=== PATIENT | female | born 2000 | race American Indian/Alaskan Native ===

== ENCOUNTER 2018-10-20 22:05 | Emergency (ER) | payer SELFPAY ==
[2018-10-20] MEDS ORDERED: TYLENOL PO ONE (22:33)
[2018-10-20 22:35] VITALS: BP 149/92
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
== END 2018-10-21 04:00 | disposition left against medical advice (07) ==
LOC: ED 22:05
DX: R51 Headache (principal)
CPT/HCPCS: 99282

== ENCOUNTER 2021-01-08 12:56 | Outpatient (CLI) | payer MEDICAID ==
[2021-01-08] MEDS ORDERED: LACTATED RINGERS 500 ML IV ONE (14:00)
[2021-01-08 15:27] LABS: Hematocrit 37.2 % (30.3-42.9); Hemoglobin 12.1 gm/dl (10.1-14.3); Mean Corpuscular HGB Conc 33 % (30-34); Mean Corpuscular Volume 84 fl (79-97); Platelet Count 251 K/mm3 (140-440); Red Blood Count 4.44 M/mm3 (3.65-5.03); Red Cell Distribution Width 13.9 % (13.2-15.2)
[2021-01-08 15:39] LABS: Bacteria,Urine 2+ /HPF (Negative); Bilirubin,Urine NEG (Negative); Blood,Urine NEG (Negative); Color,Urine Yellow (Yellow); Mucus,Urine FEW /HPF; Urobilinogen,Urine < 2.0 mg/dL (<2.0)
--- NOTE | 2021-01-08 15:46 | Ultrasound Report ---
ULTRASOUND BIOPHYSICAL PROFILE ULTRASOUND OB LIMITED INDICATION: wellbeing TECHNIQUE: Transabdominal ultrasound imaging. COMPARISON: None FINDINGS: breathing movement = 2 Gross body movement = 2 tone = 2 Qualitative amniotic fluid volume = 2 Total biophysical score = 8/8 Amniotic fluid index is 11.9 cm. Presentation is cephalic. heart rate is 144 beats per minute. IMPRESSION: biophysical profile equals 8/8. Signer Name: Manuelito Powers Jr, MD Signed: 01/08/2021 3:41 PM Workstation Name: [id number]
[2021-01-08 15:50] LABS: Alanine Aminotransferase 12 units/L (7-56); Uric Acid 3.3 mg/dL (3.5-7.6)
[2021-01-08 16:37] VITALS: BP 121/57
== END 2021-01-08 16:48 | disposition home or self-care (01) ==
LOC: APU 12:56 → TRG 12:56
DX: Z34.93 Encounter for supervision of normal pregnancy, unspecified, third trimester (principal); Z3A.38 38 weeks gestation of pregnancy
CPT/HCPCS: 36415; 59025; 76815; 76819; 81001; 82565; 83615; 84450; 84460; 84550; 85027; 87086

== ENCOUNTER 2021-01-11 14:06 | Inpatient (IN) | payer MEDICAID ==
[2021-01-11] MEDS ORDERED: fentaNYL 100 MCG/2 ML INJ IV PRN (14:33)
[2021-01-11] MEDS ORDERED: TERBUTALINE 1 MG/1 ML INJ SUB-Q PRN (14:33)
[2021-01-11] MEDS ORDERED: LIDOCAINE (2%) 20 MG/1 ML VIAL 20 ML MDV INFILTRATI ONE (14:33)
--- NOTE | 2021-01-11 14:36 | History and Physical Report ---
History of Present Illness Date of examination: 01/11/21 Date of admission: 01/11/2021 Chief complaint: Leaking of fluid from vagina History of present illness: 20 year old female presents with complaint of leaking clear fluid from vagina since around 14:00 today. Patient received care at [facility] and records are available. LMP 04/15/2020. EDC 01/20/2021 (confirmed by US at 14 weeks gestation). significant for the following: obesity (saw [facility] during the ), nonalcoholic fatty liver disease with mild hepatic steatosis (had GI referral). labs are as follows: B+, rubella immune, pap smear negative, hepatitis B surface antigen negative, HIV negative, RPR nonreactive, gonorrhea negative, chlamydia negative, trichomonas negative, AFP negative, 1 hour sugar test 85 (repeat 83), GBS negative. Past History Past Medical History: other (obesity, NAFLD) Past Surgical History: no surgical history [facility] History: denies: abnormal PAP smear, chlamydia, gonorrhea, hepatitis B, hepatitis C, herpes, HIV, syphilis, trichomonas Family/Genetic History: cancer Social history: full code. denies: smoking, alcohol abuse, prescription drug abuse, IV drug use - Obstetrical History Expected Date of Delivery: 01/20/21 Actual Gestation: 38 Week(s) 5 Day(s) : 1 Para: 0 Hx # Term Pregnancies: 0 Number of Pregnancies: 0 Spontaneous Abortions: 0 Induced : 0 Number of Living Children: 0 Medications and Allergies Allergies Allergy/AdvReac Type Severity Reaction Status Date / Time No Known Allergies Allergy Verified 07/05/18 22:09 Home Medications Medication Instructions Recorded Confirmed Last Taken Type No Known Home Medications [No 01/08/21 01/08/21 Unknown History Reported Home Medications] Active Meds: Active Medications Ephedrine Sulfate (Ephedrine Sulfate 50 Mg/1 Ml Inj) 10 mg IV Q2M PRN PRN Reason: Hypotension Fentanyl (Fentanyl 100 Mcg/2 Ml Inj) 100 mcg IV Q2H PRN PRN Reason: Pain,Severe (7-10) LABOR PAIN Oxytocin/Sodium Chloride (Pitocin/Ns 30 Unit/500ml) 30 units in 500 mls @ 2 mls/hr IV TITR ALCON; Protocol Lactated Ringer's (Lactated Ringers) 1,000 mls @ 125 mls/hr IV DIRECT ALCON Oxytocin/Sodium Chloride (Pitocin/Ns 30 Unit/500ml) 30 units in 500 mls @ 40 mls/hr IV TITR ALCON; Protocol Lidocaine (Lidocaine (2%) 20 Mg/1 Ml Vial 20 Ml Mdv) 20 ml INFILTRATI ONCE ONE Stop: 01/11/21 14:34 Mineral Oil (Mineral Oil 30 Ml Oral Liqd) 30 ml PO QHS PRN PRN Reason: Constipation Terbutaline Sulfate (Terbutaline 1 Mg/1 Ml Inj) 0.25 mg SUB-Q ONCE PRN PRN Reason: Hyperstimulation/Hypertonicity Review of Systems All systems: negative (leaking of fluid from vagina, contractions) - Physical Exam Abdomen: Positive: normal appearance, soft. Negative: distention, tenderness, guarding, rigidity Genitourinary (Female): Positive: normal external genitalia, normal perenium. Negative: perineal/vulvar lesions Vagina: Positive: other (moderate amount of clear fluid seen coming from vagina) Uterus: Positive: enlarged. Negative: tender Anus/Rectum: Positive: normal perianal skin Extremities: Negative: tenderness, edema - Obstetrical FHR: category 1 Uterine Contraction Monitor Mode: External Cervical Dilatation: 2 Cervical Effacement Percentage: 50 station: -4 Uterine Contraction Pattern: Regular Uterine Contraction Intensity: Mild Results All other labs normal. Assessment and Plan A: at 38 weeks, 5 days gestation. Spontaneous rupture of membranes. GBS negative. Obesity. NAFLD. P: Admit. Continuous EFM. Augmentation of labor.
[2021-01-11] MEDS ORDERED: OXYTOCIN DRIP 30 UNITS/500 ML BAG IV SCH ×2 (15:00)
[2021-01-11] MEDS: LACTATED RINGERS 1,000 ML IV SCH (16:04)
[2021-01-11 16:43] LABS: Hematocrit 36.5 % (30.3-42.9); Hemoglobin 12.1 gm/dl (10.1-14.3); Mean Corpuscular HGB Conc 33 % (30-34); Mean Corpuscular Volume 85 fl (79-97); Platelet Count 215 K/mm3 (140-440); Red Blood Count 4.29 M/mm3 (3.65-5.03); Red Cell Distribution Width 13.6 % (13.2-15.2)
[2021-01-11 16:58] LABS: Alanine Aminotransferase 13 units/L (7-56); Albumin 3.8 g/dL (3.9-5); Blood Urea Nitrogen 5 mg/dL (7-17); Calcium 9.1 mg/dL (8.4-10.2); Hemolysis Index 209
[2021-01-11 17:02] LABS: BUN/Creatinine Ratio 13
[2021-01-12] MEDS ORDERED: ONDANSETRON 4 MG/2 ML INJ IV PRN ×2 (02:32→06:36)
--- NOTE | 2021-01-12 02:38 | Event Note ---
Date: 01/12/21 Patient requests pain medication. SVE 2.5/60/-3. Receiving Pitocin for augmentation of labor due to SROM.
[2021-01-12] MEDS: BUTORPHANOL 2 MG/1 ML INJ IV PRN ×2 (02:42→05:14)
[2021-01-12] MEDS: LACTATED RINGERS 1,000 ML IV SCH ×4 (05:15→19:06)
[2021-01-12] MEDS ORDERED: diphenhydrAMINE 50 MG/ML VIAL IV PRN (06:36)
[2021-01-12] MEDS ORDERED: NALOXONE 2 MG/2 ML INJ IV PRN (06:36)
[2021-01-12] MEDS ORDERED: LACTATED RINGERS 250 ML IV SOLN IV ONE (06:36)
[2021-01-12] MEDS ORDERED: NalbUPHINE 10 MG/1 ML INJ IV PRN (06:36)
[2021-01-12] MEDS ORDERED: fentaNYL-BUPIV 2 MCG/ML-0.125% 200 MCG/100 ML BAG EPIDURAL SCH (07:00)
--- NOTE | 2021-01-12 07:04 | Anesthesia Consultation ---
Anesthesia Consult and Med Hx Date of service: 01/12/21 - Airway Anesthetic Teeth Evaluation: Good ROM Head & Neck: Adequate Mental/Hyoid Distance: Adequate Mallampati Class: Class III Intubation Access Assessment: Possibly Difficult - Pulmonary Exam CTA: Yes - Cardiac Exam Cardiac Exam: RRR - Pre-Operative Health Status ASA Pre-Surgery Classification: ASA3 Proposed Anesthetic Plan: Epidural - Pulmonary Hx Smoking: No Hx Asthma: No COPD: No Hx Pneumonia: No Hx Sleep Apnea: No - Cardiovascular System Hx Hypertension: Yes (PIH) Hx Heart Attack/AMI: No Hx Angina: No - Central Nervous System Hx Seizures: No Hx Psychiatric Problems: No - Gastrointestinal Hx Gastroesophageal Reflux Disease: No - Endocrine Hx Renal Disease: No Hx End Stage Renal Disease: No Hx Liver Disease: No Hx Insulin Dependent Diabetes: No Hx Non-Insulin Dependent Diabetes: No Hx Hypothyroidism: No Hx Hyperthyroidism: No - Hematic Hx Anemia: Yes Hx Sickle Cell Disease: No - Other Systems Hx Alcohol Use: No Hx Obesity: Yes
--- NOTE | 2021-01-12 07:05 | Progress Note ---
Labor Epidural - Labor Epidural Start Time: 06:45 Stop Time: 06:55 Performed by:: KIKE VILCHIS Procedure: Patient is requesting epidural for labor and pain. H&P, labs were reviewed. Patient IDed, H&P reviewed, all questions and concerns were answered, and consent was signed. Timeout was performed at bedside. Patient in sitting position. Sterile prep and drape was performed. 3ml of 1% lidocaine skin wheal at L[3]- L [4]. 18-gauge Tuohy epidural needle was advanced to loss of resistance with air technique 7cm. Negative CSF negative blood. Epidural catheter advanced to [12] centimeters. [negative] Aspiration [negative] test dose. Sterile dressing applied. Patient tolerated procedure.
[2021-01-12] MEDS: ePHEDrine SULFATE 50 MG/1 ML INJ IV PRN ×3 (07:13→07:26)
[2021-01-12] MEDS ORDERED: AMPICILLIN/NS 2 GM/100 ML 2 GM/100 ML BAG IV ONE (10:20)
--- NOTE | 2021-01-12 10:28 | Progress Note ---
Assessment and Plan A: IUP @ 38 6/7 Weeks Category I Tracing RROM Foul Smelling Amnotic Fluid GBS Negative Maternal Obesity P: Start Ampicillin 2G IV Now, 1G q 4 hours Continue Pitocin Augmentation Multiple Maternal Position Changes Subjective - Subjective Date of service: 01/12/21 Interval history: States her water broke yesterday around 1:00PM yesterday; states the fluid was clear Patient reports: loss of fluid, movement normal, other (Resting well under epidural anesthesia) Objective - Vital Signs Vital Signs: Vital Signs - 12hr 01/11/21 01/11/21 01/11/21 22:27 22:32 22:37 Temperature Pulse Rate 83 87 83 Respiratory Rate Blood Pressure O2 Sat by Pulse 98 97 100 Oximetry 01/11/21 01/11/21 01/11/21 22:40 22:42 22:47 Temperature Pulse Rate 105 H 87 86 Respiratory Rate Blood Pressure O2 Sat by Pulse 91 98 99 Oximetry 01/11/21 01/11/21 01/11/21 22:52 22:57 23:02 Temperature Pulse Rate 84 79 65 Respiratory Rate Blood Pressure O2 Sat by Pulse 99 98 99 Oximetry 01/11/21 01/11/21 01/11/21 23:07 23:12 23:17 Temperature Pulse Rate 74 71 69 Respiratory Rate Blood Pressure O2 Sat by Pulse 99 98 100 Oximetry 01/11/21 01/11/21 01/11/21 23:22 23:27 23:32 Temperature Pulse Rate 76 68 94 H Respiratory Rate Blood Pressure O2 Sat by Pulse 100 99 99 Oximetry 01/11/21 01/11/21 01/11/21 23:37 23:42 23:43 Temperature 97.8 F Pulse Rate 68 82 78 Respiratory 16 Rate Blood Pressure 136/62 O2 Sat by Pulse 98 99 Oximetry 01/11/21 01/11/21 01/11/21 23:47 23:52 23:57 Temperature Pulse Rate 77 68 82 Respiratory Rate Blood Pressure O2 Sat by Pulse 97 98 98 Oximetry 01/12/21 01/12/21 01/12/21 00:02 00:07 03:30 Temperature 97.7 F Pulse Rate 79 84 Respiratory Rate Blood Pressure O2 Sat by Pulse 99 96 Oximetry 01/12/21 01/12/21 01/12/21 05:00 05:10 05:11 Temperature 98.0 F Pulse Rate 110 H 56 L Respiratory Rate Blood Pressure O2 Sat by Pulse 100 86 Oximetry 01/12/21 01/12/21 01/12/21 05:15 05:18 05:20 Temperature Pulse Rate 101 H 106 H 104 H Respiratory Rate Blood Pressure O2 Sat by Pulse 97 94 95 Oximetry 01/12/21 01/12/21 01/12/21 05:25 05:27 05:30 Temperature Pulse Rate 93 H 110 H 96 H Respiratory Rate Blood Pressure O2 Sat by Pulse 95 93 95 Oximetry 01/12/21 01/12/21 01/12/21 05:33 05:35 05:40 Temperature Pulse Rate 105 H 88 98 H Respiratory Rate Blood Pressure O2 Sat by Pulse 94 97 96 Oximetry 01/12/21 01/12/21 01/12/21 05:45 05:50 05:52 Temperature Pulse Rate 93 H 95 H 105 H Respiratory Rate Blood Pressure 152/80 O2 Sat by Pulse 95 96 Oximetry 01/12/21 01/12/21 01/12/21 05:55 06:00 06:05 Temperature Pulse Rate 92 H 94 H 91 H Respiratory Rate Blood Pressure O2 Sat by Pulse 95 98 96 Oximetry 01/12/21 01/12/21 01/12/21 06:10 06:15 06:20 Temperature Pulse Rate 92 H 94 H 114 H Respiratory Rate Blood Pressure O2 Sat by Pulse 97 96 96 Oximetry 01/12/21 01/12/21 01/12/21 06:22 06:24 06:25 Temperature Pulse Rate 141 H 107 H 123 H Respiratory Rate Blood Pressure 138/83 O2 Sat by Pulse 93 96 Oximetry 01/12/21 01/12/21 01/12/21 06:28 06:30 06:35 Temperature Pulse Rate 123 H 111 H 109 H Respiratory Rate Blood Pressure O2 Sat by Pulse 94 97 96 Oximetry 01/12/21 01/12/21 01/12/21 06:40 06:41 06:45 Temperature Pulse Rate 42 L 43 L 114 H Respiratory Rate Blood Pressure 123/74 O2 Sat by Pulse 95 90 98 Oximetry 01/12/21 01/12/21 01/12/21 06:50 06:52 06:55 Temperature Pulse Rate 115 H 105 H Respiratory Rate Blood Pressure O2 Sat by Pulse 99 76 L 97 Oximetry 01/12/21 01/12/21 01/12/21 06:57 07:00 07:04 Temperature Pulse Rate 112 H 99 H 100 H Respiratory Rate Blood Pressure 108/62 108/55 98/47 O2 Sat by Pulse 97 Oximetry 01/12/21 01/12/21 01/12/21 07:05 07:08 07:10 Temperature Pulse Rate 104 H 102 H 82 Respiratory Rate Blood Pressure 95/43 86/40 O2 Sat by Pulse 95 94 95 Oximetry 01/12/21 01/12/21 01/12/21 07:13 07:14 07:15 Temperature Pulse Rate 99 H 85 91 H Respiratory Rate Blood Pressure 83/38 82/45 88/45 O2 Sat by Pulse 94 95 Oximetry 01/12/21 01/12/21 01/12/21 07:17 07:19 07:20 Temperature Pulse Rate 100 H 107 H 97 H Respiratory Rate Blood Pressure 93/52 97/52 O2 Sat by Pulse 93 96 Oximetry 01/12/21 01/12/21 01/12/21 07:24 07:25 07:30 Temperature Pulse Rate 105 H 103 H 106 H Respiratory Rate Blood Pressure 94/44 98/46 O2 Sat by Pulse 94 95 100 Oximetry 01/12/21 01/12/21 01/12/21 07:35 07:37 07:40 Temperature Pulse Rate 100 H 112 H 92 H Respiratory Rate Blood Pressure 96/43 97/52 100/54 O2 Sat by Pulse 96 95 Oximetry 01/12/21 01/12/21 01/12/21 07:45 07:50 07:55 Temperature Pulse Rate 100 H 106 H 103 H Respiratory Rate Blood Pressure O2 Sat by Pulse 95 96 96 Oximetry 01/12/21 01/12/21 01/12/21 07:57 08:00 08:05 Temperature Pulse Rate 117 H 107 H 109 H Respiratory Rate Blood Pressure 107/51 O2 Sat by Pulse 94 96 95 Oximetry 01/12/21 01/12/21 01/12/21 08:07 08:09 08:10 Temperature 98.9 F Pulse Rate 105 H 100 H 109 H Respiratory Rate Blood Pressure O2 Sat by Pulse 94 95 Oximetry 01/12/21 01/12/21 01/12/21 08:11 08:15 08:19 Temperature Pulse Rate 108 H 103 H 115 H Respiratory Rate Blood Pressure 111/53 O2 Sat by Pulse 97 94 Oximetry 01/12/21 01/12/21 01/12/21 08:20 08:25 08:26 Temperature Pulse Rate 105 H 111 H 112 H Respiratory Rate Blood Pressure 109/55 O2 Sat by Pulse 95 96 Oximetry 01/12/21 01/12/21 01/12/21 08:30 08:35 08:40 Temperature Pulse Rate 109 H 105 H 109 H Respiratory Rate Blood Pressure O2 Sat by Pulse 96 96 96 Oximetry 01/12/21 01/12/21 01/12/21 08:41 08:45 08:50 Temperature Pulse Rate 114 H 110 H 112 H Respiratory Rate Blood Pressure 110/56 O2 Sat by Pulse 97 97 Oximetry 01/12/21 01/12/21 01/12/21 08:55 08:56 09:00 Temperature Pulse Rate 111 H 111 H 108 H Respiratory Rate Blood Pressure 113/56 O2 Sat by Pulse 97 98 Oximetry 01/12/21 01/12/21 01/12/21 09:05 09:10 09:12 Temperature Pulse Rate 106 H 109 H 117 H Respiratory Rate Blood Pressure 101/49 O2 Sat by Pulse 98 98 Oximetry 01/12/21 01/12/21 01/12/21 09:15 09:20 09:25 Temperature Pulse Rate 109 H 113 H 114 H Respiratory Rate Blood Pressure O2 Sat by Pulse 98 98 98 Oximetry 01/12/21 01/12/21 01/12/21 09:28 09:30 09:35 Temperature Pulse Rate 107 H 115 H 118 H Respiratory Rate Blood Pressure 114/56 O2 Sat by Pulse 98 97 Oximetry 01/12/21 01/12/21 01/12/21 09:40 09:42 09:45 Temperature Pulse Rate 119 H 130 H 113 H Respiratory Rate Blood Pressure 110/55 O2 Sat by Pulse 97 96 Oximetry 01/12/21 01/12/21 01/12/21 09:50 09:55 09:57 Temperature Pulse Rate 119 H 112 H 113 H Respiratory Rate Blood Pressure 107/53 O2 Sat by Pulse 99 99 Oximetry 01/12/21 01/12/21 01/12/21 10:00 10:05 10:07 Temperature 100 F H Pulse Rate 109 H 104 H 103 H Respiratory Rate Blood Pressure O2 Sat by Pulse 98 98 Oximetry 01/12/21 01/12/21 01/12/21 10:10 10:13 10:15 Temperature Pulse Rate 123 H 115 H 108 H Respiratory Rate Blood Pressure 116/54 O2 Sat by Pulse 97 100 Oximetry 01/12/21 10:20 Temperature Pulse Rate 123 H Respiratory Rate Blood Pressure O2 Sat by Pulse 99 Oximetry - Exam Breasts: normal Cardiovascular: Regular rate Lungs: Clear to auscultation, Normal air movement Abdomen: Present: normal appearance, soft Uterus: Present: normal, firm, fundal height above umbilicus FHR: category 1 Uterine Contraction Monitor Mode: External Cervical Dilatation: 3 (Small amount of foul smelling, arias, mucous like fluid leaking) Cervical Effacement Percentage: 80 station: -3 Uterine Contraction Frequency (min): 3-4 Uterine Contraction Pattern: Regular Uterine Tone Measurement Phase: Resting Uterine Contraction Intensity: Moderate Extremities: normal - Labs Labs: Abnormal Labs 01/11/21 01/11/21 15:50 15:50 WBC 15.9 H Sodium 135 L Potassium 5.1 H Carbon Dioxide 19 L BUN 5 L Creatinine 0.4 L Glucose 56 L AST 57 H Lactate Dehydrogenase 492 H Albumin 3.8 L Laboratory Results - last 24 hr 01/11/21 01/11/21 01/11/21 15:50 15:50 15:50 WBC 15.9 H RBC 4.29 Hgb 12.1 Hct 36.5 MCV 85 MCH 28 MCHC 33 RDW 13.6 Plt Count 215 Sodium Potassium Chloride Carbon Dioxide Anion Gap BUN Creatinine Estimated GFR BUN/Creatinine Ratio Glucose Uric Acid Calcium Total Bilirubin AST ALT Alkaline Phosphatase Lactate Dehydrogenase Total Protein Albumin Albumin/Globulin Ratio Syphilis IgG Antibody Nonreactive Blood Type B POSITIVE Antibody Screen Negative 01/11/21 01/11/21 15:50 15:50 WBC RBC Hgb Hct MCV MCH MCHC RDW Plt Count Sodium 135 L Potassium 5.1 H Chloride 99.9 Carbon Dioxide 19 L Anion Gap 21 BUN 5 L Creatinine 0.4 L Estimated GFR > 60 BUN/Creatinine Ratio 13 Glucose 56 L Uric Acid 3.5 Calcium 9.1 Total Bilirubin 0.70 AST 57 H ALT 13 Alkaline Phosphatase 124 Lactate Dehydrogenase 492 H Total Protein 6.8 Albumin 3.8 L Albumin/Globulin Ratio 1.3 Syphilis IgG Antibody Blood Type Antibody Screen
[2021-01-12] MEDS ORDERED: ACETAMINOPHEN 500 MG TAB PO ONE (12:28)
[2021-01-12] MEDS ORDERED: miSOPROStol 200 MCG TAB ONE (14:58)
[2021-01-12] MEDS ORDERED: AMPICILLIN/NS 1 GM/50 ML 1 GM/50 ML BAG IV SCH (15:00)
[2021-01-12] MEDS ORDERED: GENTAMICIN IV SCH (15:00)
[2021-01-12] MEDS ORDERED: SODIUM CHLORIDE IV SCH (15:00)
[2021-01-12] MEDS ORDERED: GENTAMICIN/NS 100 MG/100 ML 100 MG/100 ML BAG IV ONE (15:30)
[2021-01-12] MEDS ORDERED: LANOLIN/ZINC/DIMETHICONE (LANSINOH) 7 GM TP PRN (15:40)
[2021-01-12] MEDS ORDERED: WITCH HAZEL/ GLYCERIN PAD TP PRN (15:40)
--- NOTE | 2021-01-12 15:49 | Procedure Note ---
OB Delivery Note - Delivery Date of Delivery: 01/12/21 (1515) Surgeon: CATHY GALE Estimated blood loss: other (250) - Vaginal Delivery presentation: vertex, compound Delivery position: OA Intrapartum events: febrile- temp >100.3, foul smelling fluid, mult.variable deceleratio Delivery induction: oxytocin Delivery augmentation: pitocin Delivery monitor: external FHT, external uterine Route of delivery: Delivery placenta: spontaneous Delivery cord: nuchal cord, 3 umbilical vessels Episiotomy: none Delivery laceration: none Anesthesia: epidural Delivery comments: of a live 6'13 female infant with a right hand compound presentation under epidural over a intact perineum with Apgars of 8 and 9 at 1515 on 01/12/2021. Nuchal cord x 1 easily manually reduced prior to delivery of the anterior shoulder. Cord double clamped and cut by KEKE Gale, and passed directly to awaiting NICU/RESP team. Spontaneous delivery of placenta complete and intact with Gomes side presenting at 1524. Fundus is firm and midline located 4 below the U. Lochia is scant. Continue Gentamicin and Ampicillin IV x 24 hours due to maternal fever. Placenta to pathology due to foul smell and maternal fever. - Infant A at 1 minute: 8 at 5 minutes: 9 Gender: Female ([phone])
[2021-01-12] MEDS: MINERAL OIL 30 ML ORAL LIQD PO PRN ×2 (15:54→15:56)
[2021-01-12] MEDS: IBUPROFEN 600 MG TAB PO SCH ×2 (19:04→22:00)
[2021-01-12] MEDS ORDERED: GENTAMICIN 220 MG in SODIUM CHLORIDE 0.9% 100 ML IV SCH (23:30)
[2021-01-13] MEDS: HYDROcodone/ACETAMINOPHEN 5-325 MG TAB PO PRN (00:16)
[2021-01-13] MEDS: IBUPROFEN 600 MG TAB PO SCH ×4 (05:06→22:00)
[2021-01-13 06:23] LABS: Hematocrit 31.8 % (30.3-42.9); Hemoglobin 10.6 gm/dl (10.1-14.3)
--- NOTE | 2021-01-13 10:19 | Progress Note ---
Subjective - Subjective Date of service: 01/13/21 Principal diagnosis: s/p Patient reports: appetite normal, voiding normally, pain well controlled, ambulating normally [place]: doing well, bottle feeding Objective - Vital Signs Latest vital signs: Vital Signs Temp Pulse Resp BP BP Pulse Ox 01/13/21 08:03 98.5 F 100 H 18 112/60 99 01/13/21 00:18 98.0 F 103 H 18 124/80 97 01/12/21 20:32 98.0 F 104 H 18 120/59 98 01/12/21 18:36 99 F 109 H 19 114/53 98 01/12/21 17:21 121 H 131/58 01/12/21 17:19 129 H 97 01/12/21 17:14 124 H 96 01/12/21 17:09 125 H 97 01/12/21 17:05 121 H 129/64 01/12/21 17:04 120 H 97 01/12/21 16:59 125 H 97 01/12/21 16:54 119 H 99 01/12/21 16:50 125 H 135/63 01/12/21 16:49 125 H 98 01/12/21 16:44 124 H 97 01/12/21 16:39 132 H 99 01/12/21 16:36 123 H 144/80 01/12/21 16:34 131 H 98 01/12/21 16:29 121 H 98 01/12/21 16:24 133 H 98 01/12/21 16:20 117 H 114/56 01/12/21 16:19 120 H 97 01/12/21 16:14 126 H 97 01/12/21 16:09 116 H 100 01/12/21 16:05 131 H 101/55 01/12/21 16:04 129 H 98 01/12/21 16:00 99 F 19 01/12/21 15:59 130 H 98 01/12/21 15:54 133 H 98 01/12/21 15:50 126 H 117/56 01/12/21 15:49 133 H 97 01/12/21 15:44 134 H 98 01/12/21 15:39 135 H 98 01/12/21 15:35 123 H 117/55 01/12/21 15:34 127 H 99 01/12/21 15:29 123 H 98 01/12/21 15:24 119 H 99 05 15:20 122 H 113/56 01/12/21 15:19 127 H 99 05 15:14 162 H 0 L 01/12/21 15:09 152 H 95 05 15:07 133 H 134/69 01/12/21 15:04 121 H 100 05 14:59 125 H 100 01/12/21 14:54 121 H 100 01/12/21 14:51 114 H 121/56 01/12/21 14:49 113 H 99 01/12/21 14:44 121 H 98 01/12/21 14:39 118 H 97 01/12/21 14:36 118 H 119/54 01/12/21 14:34 125 H 97 01/12/21 14:29 120 H 98 01/12/21 14:24 123 H 97 01/12/21 14:21 117 H 114/56 01/12/21 14:19 118 H 98 01/12/21 14:14 124 H 97 01/12/21 14:09 121 H 97 01/12/21 14:05 109 H 115/55 01/12/21 14:04 119 H 99 01/12/21 13:59 123 H 98 01/12/21 13:54 109 H 98 01/12/21 13:50 112 H 118/57 01/12/21 13:49 114 H 100 01/12/21 13:44 105 H 98 01/12/21 13:39 111 H 97 01/12/21 13:37 111 H 118/56 01/12/21 13:34 115 H 97 01/12/21 13:29 111 H 97 01/12/21 13:24 112 H 97 01/12/21 13:20 113 H 113/56 01/12/21 13:19 112 H 97 01/12/21 13:14 116 H 97 01/12/21 13:09 116 H 97 01/12/21 13:07 114 H 119/58 01/12/21 13:04 101.1 F H 110 H 98 01/12/21 12:59 113 H 98 01/12/21 12:54 112 H 99 05 12:50 110 H 109/60 01/12/21 12:49 110 H 99 01/12/21 12:44 117 H 99 05 12:39 127 H 100 01/12/21 12:37 130 H 151/70 01/12/21 12:34 141 H 97 01/12/21 12:29 115 H 100 01/12/21 12:24 119 H 99 01/12/21 12:21 120 H 135/79 05 12:19 121 H 99 01/12/21 12:17 102.5 F H 122 H 01/12/21 12:14 133 H 99 01/12/21 12:09 147 H 99 01/12/21 12:05 131 H 100/58 01/12/21 12:04 129 H 99 01/12/21 11:59 137 H 98 01/12/21 11:54 130 H 99 01/12/21 11:50 126 H 101/55 01/12/21 11:49 127 H 99 01/12/21 11:44 121 H 99 01/12/21 11:39 124 H 98 01/12/21 11:35 123 H 111/55 01/12/21 11:34 120 H 99 01/12/21 11:29 117 H 98 01/12/21 11:24 125 H 96 01/12/21 11:20 116 H 110/53 01/12/21 11:19 123 H 99 01/12/21 11:14 119 H 99 01/12/21 11:09 125 H 98 01/12/21 11:04 122 H 99 01/12/21 10:59 119 H 99 01/12/21 10:54 107 H 99 01/12/21 10:50 107 H 98 01/12/21 10:45 120 H 99 01/12/21 10:43 103 H 115/55 01/12/21 10:40 109 H 99 01/12/21 10:35 104 H 98 01/12/21 10:30 105 H 98 05 10:29 97 H 110/56 01/12/21 10:25 104 H 98 01/12/21 10:20 123 H 99 Intake and Output 01/12/21 01/13/21 01/13/21 22:59 06:59 14:59 Intake Total 700 Output Total 200 Balance -200 700 Intake: Oral 400 Intake, Free Water 300 Output: Urine 200 Straight 200 Other: Total, Intake Amount 200 # Voids Void 1 Estimated Blood Loss 250
--- NOTE | 2021-01-13 10:32 | Progress Note ---
Assessment and Plan PPD # 1 A: S/P S/P Maternal fever P: Continue routine pp care Restart Ampi and Gent UA c&s D/C home 48 hrs post fever if stable Subjective - Subjective Principal diagnosis: s/p Patient reports: appetite normal, voiding normally, pain well controlled, ambulating normally [place]: doing well, bottle feeding Objective - Vital Signs Latest vital signs: Vital Signs Temp Pulse Resp BP BP Pulse Ox 01/13/21 08:03 98.5 F 100 H 18 112/60 99 01/13/21 00:18 98.0 F 103 H 18 124/80 97 01/12/21 20:32 98.0 F 104 H 18 120/59 98 01/12/21 18:36 99 F 109 H 19 114/53 98 01/12/21 17:21 121 H 131/58 01/12/21 17:19 129 H 97 01/12/21 17:14 124 H 96 01/12/21 17:09 125 H 97 01/12/21 17:05 121 H 129/64 01/12/21 17:04 120 H 97 01/12/21 16:59 125 H 97 01/12/21 16:54 119 H 99 01/12/21 16:50 125 H 135/63 01/12/21 16:49 125 H 98 01/12/21 16:44 124 H 97 01/12/21 16:39 132 H 99 01/12/21 16:36 123 H 144/80 01/12/21 16:34 131 H 98 01/12/21 16:29 121 H 98 01/12/21 16:24 133 H 98 01/12/21 16:20 117 H 114/56 01/12/21 16:19 120 H 97 01/12/21 16:14 126 H 97 01/12/21 16:09 116 H 100 01/12/21 16:05 131 H 101/55 01/12/21 16:04 129 H 98 01/12/21 16:00 99 F 19 01/12/21 15:59 130 H 98 01/12/21 15:54 133 H 98 01/12/21 15:50 126 H 117/56 01/12/21 15:49 133 H 97 01/12/21 15:44 134 H 98 01/12/21 15:39 135 H 98 01/12/21 15:35 123 H 117/55 05 15:34 127 H 99 05 15:29 123 H 98 01/12/21 15:24 119 H 99 01/12/21 15:20 122 H 113/56 01/12/21 15:19 127 H 99 01/12/21 15:14 162 H 0 L 01/12/21 15:09 152 H 95 01/12/21 15:07 133 H 134/69 01/12/21 15:04 121 H 100 01/12/21 14:59 125 H 100 01/12/21 14:54 121 H 100 01/12/21 14:51 114 H 121/56 01/12/21 14:49 113 H 99 01/12/21 14:44 121 H 98 01/12/21 14:39 118 H 97 01/12/21 14:36 118 H 119/54 01/12/21 14:34 125 H 97 01/12/21 14:29 120 H 98 01/12/21 14:24 123 H 97 01/12/21 14:21 117 H 114/56 01/12/21 14:19 118 H 98 01/12/21 14:14 124 H 97 01/12/21 14:09 121 H 97 01/12/21 14:05 109 H 115/55 01/12/21 14:04 119 H 99 01/12/21 13:59 123 H 98 01/12/21 13:54 109 H 98 01/12/21 13:50 112 H 118/57 01/12/21 13:49 114 H 100 01/12/21 13:44 105 H 98 01/12/21 13:39 111 H 97 01/12/21 13:37 111 H 118/56 01/12/21 13:34 115 H 97 01/12/21 13:29 111 H 97 01/12/21 13:24 112 H 97 01/12/21 13:20 113 H 113/56 01/12/21 13:19 112 H 97 01/12/21 13:14 116 H 97 01/12/21 13:09 116 H 97 01/12/21 13:07 114 H 119/58 01/12/21 13:04 101.1 F H 110 H 98 01/12/21 12:59 113 H 98 01/12/21 12:54 112 H 99 05 12:50 110 H 109/60 01/12/21 12:49 110 H 99 05 12:44 117 H 99 01/12/21 12:39 127 H 100 01/12/21 12:37 130 H 151/70 01/12/21 12:34 141 H 97 01/12/21 12:29 115 H 100 01/12/21 12:24 119 H 99 01/12/21 12:21 120 H 135/79 01/12/21 12:19 121 H 99 01/12/21 12:17 102.5 F H 122 H 01/12/21 12:14 133 H 99 01/12/21 12:09 147 H 99 01/12/21 12:05 131 H 100/58 01/12/21 12:04 129 H 99 01/12/21 11:59 137 H 98 01/12/21 11:54 130 H 99 01/12/21 11:50 126 H 101/55 01/12/21 11:49 127 H 99 01/12/21 11:44 121 H 99 01/12/21 11:39 124 H 98 01/12/21 11:35 123 H 111/55 01/12/21 11:34 120 H 99 01/12/21 11:29 117 H 98 01/12/21 11:24 125 H 96 01/12/21 11:20 116 H 110/53 01/12/21 11:19 123 H 99 01/12/21 11:14 119 H 99 01/12/21 11:09 125 H 98 01/12/21 11:04 122 H 99 01/12/21 10:59 119 H 99 05 10:54 107 H 99 05 10:50 107 H 98 05 10:45 120 H 99 05 10:43 103 H 115/55 05 10:40 109 H 99 01/12/21 10:35 104 H 98 01/12/21 10:30 105 H 98 01/12/21 10:29 97 H 110/56 Intake and Output 01/12/21 01/13/21 05 22:59 06:59 14:59 Intake Total 700 Output Total 200 Balance -200 700 Intake: Oral 400 Intake, Free Water 300 Output: Urine 200 Straight 200 Other: Total, Intake Amount 200 # Voids Void 1 Estimated Blood Loss 250 - Exam Breasts: Present: normal Abdomen: Present: normal appearance, soft, normal bowel sounds Vulva: both: normal Uterus: Present: normal, firm, fundal height below umbilicus Extremities: Present: normal
--- NOTE | 2021-01-13 10:42 | Post Anesthesia Evaluation ---
- Post Anesthesia Evaluation Patient Participated: Yes Airway Patent: Yes Stable Respiratory Function: Yes Nausea/Vomiting: No Temp > 96.8F: Yes Pain Manageable: Yes Adequeate Hydration: Yes Anesthesia Complications: No Block Receding Appropriately: Yes Patient on Ventilator: No
[2021-01-13] MEDS: LACTATED RINGERS 1,000 ML IV SCH (11:17)
[2021-01-13] MEDS: AMPICILLIN/NS 1 GM/50 ML 1 GM/50 ML BAG IV SCH ×2 (11:17→17:47)
[2021-01-13] MEDS ORDERED: GENTAMICIN/NS 120MG/100ML 120 MG/100 ML BAG IV SCH (12:00)
[2021-01-13] MEDS: GENTAMICIN/NS 80 MG/100 ML 100 ML IV SCH ×2 (12:18→21:53)
[2021-01-13 15:53] LABS: Bilirubin,Urine NEG (Negative); Blood,Urine LG (Negative); Color,Urine Yellow (Yellow); Mucus,Urine FEW /HPF
[2021-01-13 15:54] LABS: RBC,Urine > 182.0 /HPF (0.0-6.0)
[2021-01-14] MEDS: AMPICILLIN/NS 1 GM/50 ML 1 GM/50 ML BAG IV SCH ×2 (01:02→07:49)
[2021-01-14] MEDS: HYDROcodone/ACETAMINOPHEN 5-325 MG TAB PO PRN (01:08)
[2021-01-14] MEDS: GENTAMICIN/NS 80 MG/100 ML 100 ML IV SCH (06:35)
[2021-01-14] MEDS: IBUPROFEN 600 MG TAB PO SCH (06:40)
--- NOTE | 2021-01-14 10:37 | Progress Note ---
Assessment and Plan A: PP Day #2 Stable P: Follow Routine Orders D/C home today Depo Provera 150mg IM x 1 dose prior to discharge RTO in 6 Weeks Subjective - Subjective Date of service: 01/14/21 Principal diagnosis: s/p Interval history: States her water broke yesterday around 1:00PM yesterday; states the fluid was clear Patient reports: appetite normal, voiding normally, pain well controlled, flatus, bowel movement, ambulating normally [place]: doing well, bottle feeding (and ) Objective - Vital Signs Latest vital signs: Vital Signs Temp Pulse Resp BP BP Pulse Ox 01/14/21 08:30 97.7 F 93 H 18 103/63 99 01/14/21 01:13 97.9 F 90 20 124/63 98 01/13/21 17:45 97.6 F 90 18 122/68 100 01/13/21 13:00 98.0 F 100 H 18 102/50 98 Intake and Output 01/13/21 01/14/21 01/14/21 22:59 06:59 14:59 Intake Total 270 770 Balance 270 770 Intake: IV 150 50 AMPICILLIN/NS 1 GM/50 ML 50 50 1 gm In 50 ml @ 100 mls/ hr IV Q6H ALCON Rx#: [id number] Gentamicin/Ns 80 mg/100 100 ml 100 ml @ 200 mls/hr IV Q8H ALCON Rx#:[id number] Oral 120 720 Other: Total, Intake Amount 120 240 # Voids Void 1 1 - Exam Breasts: Present: normal Cardiovascular: Present: Regular rate Lungs: Present: Clear to auscultation, Normal air movement Abdomen: Present: normal appearance, soft, normal bowel sounds Uterus: Present: normal, firm, fundal height below umbilicus Extremities: Present: normal - Labs Labs: Abnormal lab results 01/13/21 Range/Units 15:10 Urine WBC (Auto) 66.0 H (0.0-6.0) /HPF
--- NOTE | 2021-01-14 10:40 | Discharge Summary ---
Providers - Providers Date of Admission: 01/11/21 17:44 Date of discharge: 01/14/21 Attending physician: CONOR MARTINEZ MD Primary care physician: VINICIO BACH MD Hospitalization Reason for admission: rupture of membranes Delivery: Episiotomy: none Laceration: none Other procedures: none complications: none Discharge diagnosis: IUP at term delivered baby: female Condition at discharge: Good Disposition: DC-01 TO HOME OR SELFCARE Plan - Provider Discharge Summary Activity: routine, no sex for 6 weeks, no heavy lifting 4 weeks, no strenuous exercise Diet: routine Instructions: routine Additional instructions: [] Smoking cessation referral if applicable(refer to patient education folder for contact #) [] Refer to [facility] Booklet Call your doctor immediately for: * Fever > 100.5 * Heavy vaginal bleeding ( >1 pad per hour) * Severe persistent headache * Shortness of breath * Reddened, hot, painful area to leg or breast * Drainage or odor from incision. * Keep incision clean and dry at all times and follow doctor's instructions regarding bathing/showering - Follow up plan Follow up: VINICIO BACH MD [Primary Care Provider] - [address] Forms: [facility] Discharge Summary
[2021-01-14] MEDS ORDERED: medroxyPROGESTERone ACETATE 150 MG/ML SYRINGE IM SCH (11:00)
[2021-01-14 12:11] VITALS: BP 137/72
== END 2021-01-14 12:35 | disposition home or self-care (01) | DRG 775 ==
LOC: TRG 14:06 → APU 14:08 → TRG 14:33 → LD 16:35 → APU 17:44 → LD 18:29 → OB 01-12 18:38
PROVIDERS: ADMIT Obstetrics & Gynecology; ATTEND Obstetrics & Gynecology
PROC: 3E033VJ Introduction of Other Hormone into Peripheral Vein, Percutaneous Approach (ICD-10-PCS; principal; 2021-01-12)
PROC: 10E0XZZ Delivery of Products of Conception, External Approach (ICD-10-PCS; 2021-01-12)
PROC: 3E0R3BZ Introduction of Anesthetic Agent into Spinal Canal, Percutaneous Approach (ICD-10-PCS; 2021-01-12)
PROC: 00HU33Z Insertion of Infusion Device into Spinal Canal, Percutaneous Approach (ICD-10-PCS; 2021-01-12)
PROC: 3E033VJ Introduction of Other Hormone into Peripheral Vein, Percutaneous Approach (ICD-10-PCS; 2021-01-12)
DX: O99.214 Obesity complicating childbirth (principal); O99.02 Anemia complicating childbirth; O70.0 First degree perineal laceration during delivery; O13.4 Gestational [pregnancy-induced] hypertension without significant proteinuria, complicating childbirth; Z20.822 Contact with and (suspected) exposure to COVID-19; Z3A.38 38 weeks gestation of pregnancy; Z37.0 Single live birth; Z80.9 Family history of malignant neoplasm, unspecified
CPT/HCPCS: 36415; 80053; 81001; 83615; 84550; 85014; 85018; 85027; 86592; 86850; 86900; 86901; 87086; 88307; G0378; J0290; J0595; J1050; J1580; J2405; J2590; J7120; U0003